=== PATIENT | female | born 1990 ===

== ENCOUNTER 2018-06-22 12:18 | Emergency (ER) | payer OTHER ==
[2018-06-22 12:28] VITALS: BP 148/100; PULSE 93; RESP 16; TEMP 98; O2SAT 99
[2018-06-22 13:56] LABS: BASO % 0.6 % (0.0-2.0); EOS # 0.1 K/uL (0.0-0.7); EOS % 1.2 % (0.0-4.0); HEMOGLOBIN 12.6 g/dL (12.0-16.0); LYMPH # 2.4 K/uL (1.0-4.3); LYMPH % 32.5 % (20.0-40.0); MEAN CELL VOLUME 85.4 fl (81.0-99.0); MEAN CORPUSCULAR HGB CONC 32.8 g/dL (33.0-37.0); MEAN PLATELET VOLUME 8.3 fl (7.2-11.7); MONO # 0.5 K/uL (0.0-0.8); NEUT # 4.4 K/uL (1.8-7.0); NEUT % 58.7 % (50.0-75.0); NRBC % 0.1 % (0.0-0.0); RBC 4.5 Mil/uL (3.80-5.20); RED CELL DISTRIBUTION WIDTH 13.9 % (11.5-14.5); WHITE BLOOD COUNT 7.5 K/uL (4.8-10.8)
[2018-06-22 14:06] LABS: ALB/GLOB RATIO 1.1 (1.0-2.1); ALBUMIN 4.4 g/dL (3.5-5.0); ALT/SGPT 33 U/L (9-52); AST/SGOT 26 U/L (14-36); BLOOD UREA NITROGEN 10 mg/dl (7-17); GFR NON-AFRICAN AMERICAN > 60
[2018-06-22 14:14] LABS: PROTHROMBIN TIME 11.5 Seconds (9.8-13.1)
[2018-06-22 14:16] LABS: PARTIAL THROMBOPLASTIN TIME 29.8 Seconds (25.6-37.1)
--- NOTE | 2018-06-22 14:37 | ED PDOC ---
HPI: Female Pain Time Seen by Provider: 06/22/18 12:26 Chief Complaint (Nursing): Female Genitourinary Chief Complaint (Provider): Spotting in pregnacy History Per: Patient History/Exam Limitations: no limitations Onset/Duration Of Symptoms: Days (5) Current Symptoms Are (Timing): Still Present Additional Complaint(s): 28 yo with LMP 05/21/18 presents for evaluation of vaginal bleeding. Pt states she has appointment for 8 weeks with OB. Pt initially has some rbopwn spotting. She has some red spotting when she wiped herself after using restroom. Pt was told to come to ER for evaluation if she saw red blood, by her OB. Pt currently taking vitamins. Past Medical History Reviewed: Historical Data, Nursing Documentation, Vital Signs Vital Signs: Last Vital Signs Temp 98.0 F 06/22/18 12:26 Pulse 93 H 06/22/18 12:26 Resp 16 06/22/18 12:26 BP 148/100 H 06/22/18 12:26 Pulse Ox 99 06/22/18 12:26 - Medical History PMH: HTN (stopped medication in December 2017) - Surgical History Surgical History: No Surg Hx - Family History Family History: States: No Known Family Hx - Living Arrangements Living Arrangements: With Family - Social History Current smoker - smoking cessation education provided: No - Allergies Allergies/Adverse Reactions: Allergies Allergy/AdvReac Type Severity Reaction Status Date / Time No Known Allergies Allergy Verified 06/22/18 12:26 Review of Systems ROS Statement: Except As Marked, All Systems Reviewed And Found Negative Constitutional: Negative for: Fever, Chills Gastrointestinal: Negative for: Nausea, Vomiting, Abdominal Pain, Diarrhea Genitourinary Female: Positive for: Vaginal Bleeding. Negative for: Pelvic Pain Physical Exam - Reviewed Nursing Documentation Reviewed: Yes Vital Signs Reviewed: Yes - Physical Exam Appears: Positive for: Well, Non-toxic, No Acute Distress Head Exam: Positive for: ATRAUMATIC, NORMAL INSPECTION, NORMOCEPHALIC Skin: Positive for: Normal Color, Warm, DRY Eye Exam: Positive for: Normal appearance ENT: Positive for: Normal ENT Inspection Neck: Positive for: Normal, Painless ROM Cardiovascular/Chest: Positive for: Regular Rate, Rhythm Respiratory: Positive for: Normal Breath Sounds. Negative for: Accessory Muscle Use, Respiratory Distress Gastrointestinal/Abdominal: Positive for: Normal Exam, Soft. Negative for: Tenderness Back: Positive for: Normal Inspection Extremity: Positive for: Normal ROM Neurologic/Psych: Positive for: Alert, Oriented - Laboratory Results Result Diagrams: 06/22/18 13:52 06/22/18 13:52 - ECG O2 Sat by Pulse Oximetry: 99 Medical Decision Making Medical Decision Making: Beta Hcg - 203 Gestational sac without yolk sac or pole. Repeat Beta Hcg in 2-3 days Disposition - Clinical Impression Clinical Impression: Vaginal bleeding during - Disposition Referrals: [facility] [Outside] Disposition: Routine/Home Disposition Time: 16:05 Condition: STABLE Instructions: Bleeding With (DC) Forms: [employer] (Italian)
--- NOTE | 2018-06-22 15:01 | US ---
Date of service: 06/22/2018 PROCEDURE: OB Pelvic Ultrasound HISTORY: Vaginal bleeding in COMPARISON: None available. FINDINGS: UTERUS: Single intrauterine gestation. Gestational sac diameter measures 0.34 cm too small to characterize gestational age. Yolk sac and pole are not visualized. Maryanne-gestational hemorrhage: None. Uterus measures 7.0 x 4.7 x 3.9 cm. Anteverted and normal in size. CERVIX: Long and closed. There is small amount of fluid in the endocervical canal. RIGHT OVARY: Measures 3.1 x 1.8 x 2.0 cm. No mass. Normal flow. LEFT OVARY: Measures 3.4 x 2.5 x 2.5 cm. No mass. Normal flow. There is a 1.9 x 1.9 x 1.2 cm corpus luteum cyst. There is a 1.5 x 1.5 x 1.2 cm simple cyst. FREE FLUID: None. OTHER FINDINGS: None. IMPRESSION: Single intrauterine gestational sac too small to accurately characterize gestational age. Clinical and ultrasound follow-up is recommended to assess viability.
== END 2018-06-22 17:00 | disposition home or self-care (01) ==
LOC: H.ER 12:18
DX: O46.90 Antepartum hemorrhage, unspecified, unspecified trimester (principal); I10 Essential (primary) hypertension